=== PATIENT | female | born 1995 | race Caucasian/White ===

== ENCOUNTER 2024-01-14 21:16 | Emergency (ER) | payer BC ==
[~2024-01-14] VITALS: Ht 154.9 cm; Wt 72.6 kg
[2024-01-14] MEDS ORDERED: METOCLOPRAMIDE HCL 10 MG/2 ML VIAL ONE (22:02)
[2024-01-14] MEDS ORDERED: diphenhydrAMINE 50 MG/1 ML VIAL ONE (22:03)
[2024-01-14 22:11] LABS: BASOPHILS % (AUTO) 0.1 % (0.0-2.0); EOSINOPHILS % (AUTO) 0.4 % (0.0-7.0); HEMATOCRIT 41.4 % (31.2-41.9); HEMOGLOBIN 13.5 g/dL (10.9-14.3); LYMPHOCYTES # (AUTO) 0.5 K/uL (0.8-4.8); LYMPHOCYTES % (AUTO) 6.5 % (20.5-51.5); MEAN CORPUSCULAR HEMOGLOBIN 28.6 uug (24.7-32.8); MEAN CORPUSCULAR HGB CONC 33 g/dL (32.3-35.6); MEAN CORPUSCULAR VOLUME 87.7 fL (75.5-95.3); MONOCYTES # (AUTO) 0.3 K/uL (0.1-1.30); MONOCYTES % (AUTO) 3.6 % (0.0-11.0); NEUTROPHILS # (AUTO) 6.4 K/uL (1.8-8.9); NEUTROPHILS % (AUTO) 89.4 % (38.5-71.5); PLATELET COUNT (AUTO) 198 K/uL (179-408); RED BLOOD CELL COUNT(AUTO) 4.72 MIL/uL (3.63-4.92); RED CELL DISTRIBUTION WIDTH 13.8 % (12.3-17.7); WHITE BLOOD COUNT (AUTO) 7.1 K/uL (3.8-11.8)
[2024-01-14] MEDS: IV NORMAL SALINE 1000 ML BAG IV ONE (22:16)
[2024-01-14] MEDS: diphenhydrAMINE 50 MG/1 ML VIAL IV ONE (22:16)
[2024-01-14] MEDS: METOCLOPRAMIDE HCL 10 MG/2 ML VIAL IV ONE (22:16)
[2024-01-14 22:17] LABS: DIFFERENTIAL COMMENT 1
[2024-01-14] MEDS ORDERED: ACETAMINOPHEN 500 MG TABLET ONE (22:24)
[2024-01-14 22:58] LABS: ALBUMIN 3.8 g/dL (3.4-5.0); BILIRUBIN,DIRECT 0.2 mg/dL (0.0-0.2); BILIRUBIN,TOTAL 0.6 mg/dL (0.2-1.0); CALCIUM 8.4 mg/dL (8.5-10.1); CREATININE 0.7 mg/dL (0.6-1.3); POTASSIUM 3.7 mmol/L (3.5-5.1); TOTAL PROTEIN, SERUM 7.5 g/dL (6.4-8.2)
[2024-01-15 00:17] LABS: *BILIRUBIN,URIN NEGATIVE (NEGATIVE); *BLOOD, URINE NEGATIVE (NEGATIVE); *CLARITY,URINE CLEAR (CLEAR); *COLOR,URINE YELLOW (YELLOW); *KETONES,URINE 3+ (NEGATIVE); *PROTEIN,URINE NEGATIVE (NEGATIVE); *UROBILINOGEN,URINE 0.2 E.U./dl (NORMAL); LEUKOCYTE ESTERASE ,URINE NEGATIVE (NEGATIVE); NITRITE, URINE NEGATIVE (NEGATIVE); PH,URINE 5.5 (5.0-8.0); UGLUCOSE NEGATIVE (NEGATIVE)
[2024-01-15 00:20] LABS: *URINE HCG, QUAL NEGATIVE (NEGATIVE)
[2024-01-15] MEDS ORDERED: DIPH25CA83 PO (00:22)
[2024-01-15] MEDS ORDERED: METO-295 PO (00:22)
[2024-01-15 00:50] VITALS: BP 121/68; TEMP 98; O2SAT 100
[2024-01-15 13:54] LABS: BACTERIA,URINE FEW /HPF (NONE SEEN); RBC,URINE NONE SEEN /HPF (0-3); SQUAMOUS EPITHELIAL CELL,UR FEW /HPF (NONE SEEN); WBC,URINE 0-3 /HPF (0-3)
[2024-01-15 13:55] LABS: URINE AMORPHOUS URATE MANY /HPF
== END 2024-01-15 00:51 | disposition home or self-care (01) ==
LOC: ER 21:21
DX: R11.2 Nausea with vomiting, unspecified (principal); R10.2 Pelvic and perineal pain; Z20.822 Contact with and (suspected) exposure to COVID-19; Z79.899 Other long term (current) drug therapy
CPT/HCPCS: 99284; 96374; 96361; 96375; 87426; 80076; 80048; 83690; 85025; 36415; 81001; 84703; J1200; J2765; J7040; A4606; A4663; A9150